=== PATIENT | male | born 1960 | race Caucasian/White ===

== ENCOUNTER 2019-06-19 00:47 | Day surgery (SDC) | payer BC, SELFPAY ==
[2019-06-18 13:55] VITALS: BMI 27.8
[2019-06-19] MEDS: LACTATED RINGERS 1,000 ML 150 ML IV CONT (07:57)
[2019-06-19 08:00] VITALS: BP 123/84; PULSE 78; RESP 16; TEMP 36.9; O2SAT 95
[2019-06-19 08:00] LABS: Glucose Point of Care 199 (65-105)
[2019-06-19 08:02] VITALS: BMI 27.6
--- NOTE | 2019-06-19 08:03 | PM.HPGS ---
History of Present Illness History of Present Illness Consent: Risks, benefits, and alternatives have been discussed and questions answered. Patient agrees to proceed with procedure. Chief complaint: hx colon polyps Narrative: Donta Swan is a 58 year old male for screening colonoscopy. He had polyps removed 5 years ago. Meds Home Medications and Allergies Home Medications Medication Instructions Recorded Confirmed Type aspirin [Adult Low Dose Aspirin] 81 mg PO DAILY 06/18/19 06/19/19 History atorvastatin 10 mg PO DAILY 06/18/19 06/19/19 History fenofibrate micronized 134 mg PO DAILY 06/18/19 06/19/19 History metformin 1,000 mg PO BID 06/18/19 06/19/19 History metoprolol succinate 25 mg PO DAILY 06/18/19 06/19/19 History Allergies Allergy/AdvReac Type Severity Reaction Status Date / Time No Known Allergies Allergy Verified 06/19/19 07:47 Vital Signs Vital Signs - 24 hr 06/19/19 08:00 Temperature 36.9 C Pulse Rate 78 Respiratory Rate 16 Blood Pressure 123/84 Pulse Oximetry 95 Exam Resp: Auscultation: clear to auscultation bilaterally Cardio: Rate: regular rate Rhythm: regular rhythm GI: GI Palp: Yes Soft to palpation and No Tenderness to palpation present (GI) Assessment and Plan Assessment and plan (1) Colon cancer screening: Code(s): Z12.11 - Encounter for screening for malignant neoplasm of colon Status: Acute Assessment and Plan: Colonoscopy with possible biopsy or polypectomy or cautery or injection of substances.
--- NOTE | 2019-06-19 08:33 | WPDANESEPPF ---
Anes - Initial Pre Proc Eval Procedure: Operation Date: 06/19/19 08:30 Proposed Procedures p Screening Colonoscopy - Artie Castanon MD Date/Time: 06/19/19 08:33 Surgeon: Artie Castanon MD Pre Op Diagnosis: hx colon polyps Patient Data Age: 58 Gender: M Height: 6 ft Weight: 92.4 kg Last Vital Signs Temp 98.4 F 06/19/19 08:00 Pulse 78 06/19/19 08:00 Resp 16 06/19/19 08:00 BP 123/84 06/19/19 08:00 Pulse Ox 95 06/19/19 08:00 Allergies Allergy/AdvReac Type Severity Reaction Status Date / Time No Known Allergies Allergy Verified 06/19/19 07:47 Home Medications Medication Instructions Recorded Confirmed Type aspirin [Adult Low Dose Aspirin] 81 mg PO DAILY 06/18/19 06/19/19 History atorvastatin 10 mg PO DAILY 06/18/19 06/19/19 History fenofibrate micronized 134 mg PO DAILY 06/18/19 06/19/19 History metformin 1,000 mg PO BID 06/18/19 06/19/19 History metoprolol succinate 25 mg PO DAILY 06/18/19 06/19/19 History Laboratory Tests 06/19/19 07:55 POC Capillary Glucose 199 mg/dl H mg/dl (65-105) Patient hx anesthesia problems: none Family hx anesthesia problems: none PMFSH Past Medical History Medical History (Updated 06/19/19 @ 08:20 by Jasen Garces MD) Diabetes Hyperlipidemia Hypertension Surgical History Surgical History (Updated 06/19/19 @ 08:33 by Jasen Garces MD) S/P CABG x 5 Anes - Eval Final PreProcedure Day of Procedure 06/19/19 08:33 Patient weight: overweight Heart: regular rate and rhythm Lungs: clear to auscultation Airway: Mallampati scale class II Neurological: alert and oriented Last oral intake: >/= 8 hours ASA classification: III Emergent: no Anesthetic plan: proceed Anesthesia type and monitoring: general GIVS and standard monitoring Informed Consent: The patient's anesthetic plan and its attendant risks and benefits were discussed with the patient/family/POA. Questions were solicited and answers provided to the satisfaction of the patient/family/POA.
[2019-06-19 08:58] VITALS: BP 115/81; PULSE 76; RESP 19; O2SAT 97
[2019-06-19 09:08] VITALS: BP 121/85; PULSE 76; RESP 23; O2SAT 93
[2019-06-19 09:14] VITALS: BP 115/80; PULSE 80; RESP 26; O2SAT 95
== END 2019-06-19 09:20 | disposition home or self-care (01) ==
PROVIDERS: PCP Family Medicine Sports Medicine; Visit Provider Internal Medicine Gastroenterology
PROC: 0DJD8ZZ Inspection of Lower Intestinal Tract, Via Natural or Artificial Opening Endoscopic (ICD-10-PCS; CPT 45378; principal; 2019-06-19 08:30)
DX: Z12.11 Encounter for screening for malignant neoplasm of colon (principal); K63.5 Polyp of colon; K57.30 Diverticulosis of large intestine without perforation or abscess without bleeding; I10 Essential (primary) hypertension; E78.5 Hyperlipidemia, unspecified; E11.9 Type 2 diabetes mellitus without complications; Z79.82 Long term (current) use of aspirin; Z79.84 Long term (current) use of oral hypoglycemic drugs; Z95.1 Presence of aortocoronary bypass graft
CPT/HCPCS: 45380; 88305; J2704; J7120

== ENCOUNTER 2021-12-04 10:47 | Emergency (ER) | payer BC, SELFPAY ==
[2021-12-04 11:02] VITALS: BP 143/89; PULSE 85; RESP 16; TEMP 36.4; O2SAT 97
--- NOTE | 2021-12-04 11:57 | ED.GENADULT ---
HPI - General Adult General Chief complaint: Skin/Abscess/Foreign Body Stated complaint: Rash on head Source: patient Mode of arrival: ambulatory Limitations: no limitations History of Present Illness HPI narrative: Patient presents for evaluation of painful, pruritic rash to the left side of his forehead/scalp. Symptom onset Monday of this week. No new lotions, soaps, detergents, topical products. He has a history of chickenpox in childhood. No one else has similar symptoms. He has not taken any medications to assist with his symptoms. He states when he palpates the affected area feels like he was punched there . No additional complaints or concerns. Related Data Home Medications Medication Instructions Recorded Confirmed aspirin 81 mg tablet,delayed 81 mg PO DAILY 06/18/19 06/19/19 release (Adult Low Dose Aspirin) atorvastatin 10 mg tablet 10 mg PO DAILY 06/18/19 06/19/19 fenofibrate micronized 134 mg 134 mg PO DAILY 06/18/19 06/19/19 capsule metformin 1,000 mg tablet 1,000 mg PO BID 06/18/19 06/19/19 metoprolol succinate 25 mg 25 mg PO DAILY 06/18/19 06/19/19 tablet,extended release 24 hr Allergies Allergy/AdvReac Type Severity Reaction Status Date / Time No Known Allergies Allergy Verified 06/19/19 07:47 Review of Systems Review of Systems: CONSTITUTIONAL: Denies fever, chills, or sweats. EYES: Denies visual changes, redness, or discharge. ENT: Denies rhinorrhea, congestion, sore throat, or otalgia. CARDIOVASCULAR: Denies chest pain, palpitations, or edema. RESPIRATORY: Denies cough or dyspnea. GASTROINTESTINAL: Denies abdominal pain, nausea, vomiting, or diarrhea. GENITOURINARY: Denies dysuria or hematuria. SKIN: Reports painful, pruritic rash to the left side of his forehead/scalp MUSCULOSKELETAL: Denies back pain, joint pain, or myalgia. NEUROLOGIC: Denies headache, numbness, dizziness, or weakness. PSYCHIATRIC: Denies anxiety or depression. [facility] Past Medical History Medical History Diabetes Hyperlipidemia Hypertension Shingles Surgical History Surgical History S/P CABG x 5 Family History Family History Mother Family history non-contributory Social History Social History Smoking status: Never smoker Living arrangements: with family Gender identity (if verbalized by the patient): Male Sexual Orientation (if Verbalized by the Patient): Straight or Heterosexual Spiritual care concerns: No Exam Narrative: GENERAL: Well-appearing, well-nourished, and in no acute distress. HEAD: Normocephalic, atraumatic. EYES: PERRLA and EOMI. ENT: Nares clear, no rhinorrhea or epistaxis. Mucous membranes moist. Oropharynx without tonsillar hypertrophy exudate or other lesions. Bilateral TMs pearly diaz nonbulging NECK: Supple. No adenopathy or masses. No carotid bruits or JVD CHEST: Clear to auscultation. No respiratory distress. No wheezes rales or rhonchi HEART: Regular rate and rhythm. No murmur heard. Normal peripheral pulses. ABDOMEN: Soft, nontender, nondistended, normal active bowel sounds. EXTREMITIES: Normal range of motion. No edema. SKIN: There are a cluster of erythematous, raised, indurated areas to the left side of his forehead/frontal region of his scalp. There appear to be forming vesicles in that area NEURO: No focal deficits. Alert and oriented x3. PSYCH: Normal mood and affect. Course Course Emergency Course: This is a 60-year-old male that presented for evaluation of painful, erythematous and pruritic areas to the skin of his forehead and scalp. This appears to be herpes zoster. I cannot definitively rule out allergic dermatitis. He will take Benadryl [id number] at home orally. We will add Valtrex and hydrocodone.
== END 2021-12-04 12:06 | disposition home or self-care (01) ==
PROVIDERS: Emergency Provider Nurse Practitioner; PCP Family Medicine Sports Medicine
DX: B02.9 Zoster without complications (principal); E11.9 Type 2 diabetes mellitus without complications; E78.5 Hyperlipidemia, unspecified; I10 Essential (primary) hypertension
CPT/HCPCS: 99213; G0463

== ENCOUNTER 2023-03-04 14:26 | Emergency (ER) | payer BC, SELFPAY ==
--- NOTE | ~2023-03-04 | XR_ITS ---
XR humerus LT 03/04/2023 16:05 Indication: Left arm injury. Procedure: 2 views left humerus Comparison: No prior studies for comparison. Findings: Mild polyarticular osteoarthritis of the left shoulder. There is subtle ossification adjace nt to the humeral head, consistent with calcific tendinopathy. No acute fracture, subluxation or disl ocation. No foreign bodies. Impression: 1: No acute fracture. Reviewed, dictated and finalized at location A. NSIC ACCOUNTANT Impression: 1: No acute fracture.
[2023-03-04 14:49] VITALS: BP 128/80; PULSE 99; RESP 18; TEMP 36.3; O2SAT 99
--- NOTE | 2023-03-04 16:21 | ED.UPPEXIN ---
HPI - Extremity Injury (Upper) General Chief Complaint: Extremity Injury, Upper Stated Complaint: torn bicep Time Seen by Provider: 03/04/23 15:46 History of Present Illness HPI narrative: 62-year-old male reports for evaluation for left biceps pain for the past few hours. Patient states a few hours ago, he was climbing a ladder in the garage when he slipped and tried to catch himself with his left arm. States he felt a pull in his biceps is concerned that he tore his biceps muscle. He reports that his sling which has improved his pain. He has not taken anything for pain. Patient denies other injuries acquired during the fall. He did not his head or lose consciousness. Related Data Home Medications Medication Instructions Recorded Confirmed aspirin 81 mg tablet,delayed 81 mg PO DAILY 06/18/19 06/19/19 release (Adult Low Dose Aspirin) atorvastatin 10 mg tablet 10 mg PO DAILY 06/18/19 06/19/19 fenofibrate micronized 134 mg 134 mg PO DAILY 06/18/19 06/19/19 capsule metformin 1,000 mg tablet 1,000 mg PO BID 06/18/19 06/19/19 metoprolol succinate 25 mg 25 mg PO DAILY 06/18/19 06/19/19 tablet,extended release 24 hr Allergies Allergy/AdvReac Type Severity Reaction Status Date / Time No Known Allergies Allergy Verified 03/04/23 15:49 Review of Systems Review of Systems: CONSTITUTIONAL: Denies fever, chills, or sweats. EYES: Denies visual changes, redness, or discharge. ENT: Denies rhinorrhea, congestion, sore throat, or otalgia. CARDIOVASCULAR: Denies chest pain, palpitations, or edema. RESPIRATORY: Denies cough or dyspnea. GASTROINTESTINAL: Denies abdominal pain, nausea, vomiting, or diarrhea. GENITOURINARY: Denies dysuria or hematuria. SKIN: Denies rash or itching. MUSCULOSKELETAL: See HPI NEUROLOGIC: Denies headache, numbness, or weakness. PSYCHIATRIC: Denies anxiety or depression. [facility] Past Medical History Medical History Diabetes Hyperlipidemia Hypertension Shingles Surgical History Surgical History S/P CABG x 5 Family History Family History Mother Family history non-contributory Social History Social History Smoking status: Never smoker Living arrangements: with family Gender identity (if verbalized by the patient): Male Sexual Orientation (if Verbalized by the Patient): Straight or Heterosexual Spiritual care concerns: No Exam Narrative: GENERAL: Well-appearing, well-nourished, and in no acute distress. HEAD: Normocephalic, atraumatic. NECK: Supple. CHEST: Clear to auscultation. No respiratory distress. HEART: Regular rate and rhythm. No murmur heard. Normal peripheral pulses. 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 Tenderness to proximal radius and ulna. No overlying ecchymosis or edema. Full flexion of the arm with 170 degree extension. Elbow flexion, extension, supination and pronation 5/5. Radial pulse is absent secondary to prior CABG. Ulnar artery heard with doppler. Radial, median and ulnar nerves intact. Sensation intact throughout. SKIN: Warm, dry, no rash. NEURO: No focal deficits. Alert and oriented x3 Course Vital Signs Vital signs: Vital Signs Temperature 97.4 F L 03/04/23 14:49 Pulse Rate 99 03/04/23 14:49 Respiratory Rate 18 03/04/23 14:49 Blood Pressure 128/80 03/04/23 14:49 Pulse Oximetry 99 03/04/23 14:49 Temperature 97.4 F L 03/04/23 14:49 Pulse Rate 99 03/04/23 14:49 Respiratory Rate 18 03/04/23 14:49 Blood Pressure 128/80 03/04/23 14:49 Pulse Oximetry 99 03/04/23 14:49 MDM - Extremity Injury (Upper) MDM Narrative Medical decision making narrative: 62-year-old male reports for evaluation for left upper extremity pain after he tried to catch himself up falling
[2023-03-04] MEDS: IBUPROFEN 600 MG TABLET PO (16:36)
[2023-03-04] MEDS: HYDROcodone/acetaminophen (*CRX) 5-325 MG TABLET 1 TAB PO (16:36)
== END 2023-03-04 17:24 | disposition home or self-care (01) ==
PROVIDERS: Emergency Provider Physician Assistant; PCP Family Medicine
DX: S46.212A Strain of muscle, fascia and tendon of other parts of biceps, left arm, initial encounter (principal); E78.5 Hyperlipidemia, unspecified; I10 Essential (primary) hypertension; E11.9 Type 2 diabetes mellitus without complications; Z95.1 Presence of aortocoronary bypass graft; Z79.84 Long term (current) use of oral hypoglycemic drugs; Z79.82 Long term (current) use of aspirin; W11.XXXA Fall on and from ladder, initial encounter
CPT/HCPCS: 73060; 99283; A4565; A9270

== ENCOUNTER 2023-03-08 14:10 | Outpatient (CLI) | payer BC, SELFPAY ==
--- NOTE | 2023-03-08 14:24 | ECG_ITS ---
Measurements Intervals [place] Rate: 71 P: 28 IN: 177 QRS: -11 QRSD: 106 T: 29 QT: 374 QTc: 408 Interpretive Statements SINUS RHYTHM INCOMPLETE RIGHT BUNDLE BRANCH BLOCK [90+ ms QRS DURATION, TERMINAL R IN V1/V2, 40+ ms S IN I/aVL/V4/V5/V6] INFERIOR MYOCARDIAL INFARCTION , PROBABLY OLD [40+ ms Q WAVE AND/OR ST/T ABNORMALITY IN II/aVF] NO PREVIOUS ECG AVAILABLE FOR COMPARISON Electronically Signed On 03-08-2023 15:08:14 [employer]ER[employer] PRODUCT TESTER by Khari Henson M.D.
[2023-03-08 15:00] LABS: Anion Gap 7 mmol/L (8-16); Blood Urea Nitrogen 23 mg/dL (9-20); Calcium 9.5 mg/dL (8.4-10.2); Carbon Dioxide 31 mmol/L (22-30); Chloride 102 mmol/L (98-107); Estimated Glomerular Filt Rate > 60; Glucose 146 mg/dL (65-110); Potassium 3.8 mmol/L (3.4-5.0); Sodium 140 mmol/L (137-145)
== END 2023-03-08 14:11 | disposition home or self-care (01) ==
PROVIDERS: PCP Family Medicine; Visit Provider Anesthesiology
DX: Z01.818 Encounter for other preprocedural examination (principal); E11.9 Type 2 diabetes mellitus without complications; I10 Essential (primary) hypertension; I45.10 Unspecified right bundle-branch block; R93.1 Abnormal findings on diagnostic imaging of heart and coronary circulation
CPT/HCPCS: 36415; 80048; 93005

== ENCOUNTER 2023-03-10 01:18 | Day surgery (SDC) | payer BC, SELFPAY ==
--- NOTE | 2023-03-07 17:12 | PC.NURSE ---
Report to the Outpatient Waiting Room, entrance under the green pavilion located off [facility], at time 1030 on date 03/10/23. Planned Procedure Time: 1230. Time changes happen often and if your time is changed the preop area will call you the afternoon before. - You and your visitor will be asked to self-screen and do not enter if you have any COVID symptoms. - A mask is optional within the hospital at this time. Patients may have clear liquids (water, carbonated beverages, clear teas, apple juice) until 3 hours prior to surgery with a maximum of 20 ounces. 0930 - No food from midnight until time of surgery - Infants may have breast milk until 4 hours before surgery, formula 6 hours prior to surgery. - Children will be allowed to drink immediately following surgery. If applicable, please bring a bottle or sippy cup to assist with drinking. Juice, water, soda, and popsicles are readily available. For infants on formula, please bring formula the day of surgery. Pacifiers are allowed. Take the following medications with a SIP of water the morning of surgery: metoprolol DO NOT STOP ANY OF YOUR OTHER PRESCRIPTION MEDICATIONS PRIOR TO SURGERY ?EXCEPT THE FOLLOWING Medications to discontinue per physician aspirin, atorvastatin, farxiga, fenofibrate, glimepiride, metformin Date to take last dose aspirin, atorvastatin, farxiga, fenofibrate, glimepiride, metformin- 03/09/23 (patient has held aspirin starting 03/06/23) Please no make-up, nail citizen of [place], hairspray, perfume, deodorant, or body powder the day of surgery. No jewelry (including any body piercings) or valuables the day of surgery, leave them at home. Please take a shower or bath the night before, or the morning of, surgery with an antibacterial soap. Wear comfortable, loose fitting clothing. Children are encouraged to wear pajamas. - Jewelry must be removed prior to entering the operating room. Rings and piercings that are not removed may be cut off. - The hospital will not accept responsibility for valuables. - Please leave all valuables, including medications, at home the day of surgery. If you are going home after surgery, a licensed transfer driver must drive you home. - NO public transportation without another adult if you receive anesthesia. - We recommend that an adult stay with you for 24 hours following discharge. - We also recommend that you do not drive, make important decision, drink alcoholic beverages, or take any drugs that were not prescribed by your health care provider for at least 24 hours after your discharge time. For Pediatric surgeries, we recommend two adults accompany the child home. Follow any additional instructions given to you from your surgeon. If you or anyone in your household have experienced Covid symptoms in the past week, please notify your surgeon or the nurse liaison at the phone number below for possible testing. Telephone instructions given to Patient- Donta Swan and asked if any additional questions and then verbalized understanding. Patient advised to call surgeon office or pre surgery nurse liaison [phone] if any additional questions.
[2023-03-07 17:19] VITALS: BMI 26.4
[2023-03-10] VITALS (12 sets, daily range): BP systolic 121–153; BP diastolic 63–83; PULSE 88–103; RESP 12–21; TEMP 36.2–36.6; O2SAT 93–98
--- NOTE | ~2023-03-10 | XR_ITS ---
EXAMINATION: XR surgery orthopedic DATE: 03/10/2023 13:23 INDICATION: Left biceps tendon repair. TECHNIQUE: 4 fluoroscopic images of the left elbow were obtained during procedure performed by Dr. Wes yost. Radiologist was not present for the imaging or procedure. The amount of fluoroscopy time used during this procedure was 2.8 minutes. COMPARISON: 03/04/2023 FINDINGS: The tip of a probe likely for marking project over the radial tuberosity. Also projecting over the pr oximal radius is a small surgical clip which may relate to an earlier biceps tendon repair. Subsequen t images demonstrate a lucent tract extending across the proximal radial diaphysis at the level of th e radial tubercle and placement of a metallic button overlying the typical likely for anchoring of th e distal biceps tendon repair. Bone alignment is normal. No fracture. Mild osteoarthritis at the prox imal radioulnar articulation. Expected small amount of soft tissue gas at the operative bed. IMPRESSION: 1. Fluoroscopy utilized during the distal left biceps tendon repair with expected appearance. See pro cedure note for further detail. Reviewed, dictated and finalized at location A. STANT TEACHER IMPRESSION: 1. Fluoroscopy utilized during the distal left biceps tendon repair with expect ed appearance. See procedure note for further detail.
--- NOTE | 2023-03-10 07:08 | WPDHPUPDATE1 ---
History and Physical Update Update Date/Time: 03/10/23 07:08 History and Physical has been reviewed, including an updated exam of the patient. There are NO changes in the patient's condition. Risks, benefits, and alternatives have been discussed and questions answered. Patient agrees to proceed with procedure.
[2023-03-10] MEDS: ACETAMINOPHEN 500 MG TABLET 1000 MG PO (10:00)
[2023-03-10] MEDS: CELECOXIB 200 MG CAPSULE PO (10:00)
[2023-03-10] MEDS: LACTATED RINGERS 1,000 ML 30 ML IV CONT ×2 (10:05→13:35)
[2023-03-10 10:20] LABS: Glucose Point of Care 168 mg/dl (65-105)
--- NOTE | 2023-03-10 10:52 | WPDANESEPPF ---
Anes - Initial Pre Proc Eval Procedure: Operation Date: 03/10/23 12:00 Proposed Procedures p Left Distal Biceps Repair - Deon Jacome MD Date/Time: 03/10/23 10:52 Surgeon: Deon Jacome MD Pre Op Diagnosis: left distal biceps rupture Patient Data Age: 62 Gender: M Height: 1.85 m Weight: 91.4 kg Last Vital Signs Temp 36.2 C L 03/10/23 09:52 Pulse 103 H 03/10/23 09:52 Resp 18 03/10/23 09:52 BP 125/80 03/10/23 09:52 Pulse Ox 98 03/10/23 09:52 O2 Del Method Room Air 03/10/23 09:52 Allergies Allergy/AdvReac Type Severity Reaction Status Date / Time No Known Allergies Allergy Verified 03/10/23 10:15 Home Medications Medication Instructions Recorded Confirmed Type aspirin 81 mg tablet,delayed 81 mg PO DAILY 06/18/19 03/07/23 History release (Adult Low Dose Aspirin) atorvastatin 10 mg tablet 10 mg PO DAILY 06/18/19 03/07/23 History fenofibrate micronized 134 mg 134 mg PO DAILY 06/18/19 03/07/23 History capsule metformin 1,000 mg tablet 1,000 mg PO BID 06/18/19 03/07/23 History metoprolol succinate 25 mg 25 mg PO DAILY 06/18/19 03/07/23 History tablet,extended release 24 hr dapagliflozin propanediol 10 mg 10 mg PO DAILY 03/07/23 03/07/23 History tablet (Farxiga) glimepiride 4 mg tablet 4 mg PO DAILY 03/07/23 03/07/23 History hydrocodone 5 mg-acetaminophen 325 1 tablet PO Q8H PRN pain #30 tabs 03/10/23 Rx mg tablet Laboratory Tests 03/10/23 10:18 POC Capillary Glucose 168 H mg/dl (65-105) Patient hx anesthesia problems: none Family hx anesthesia problems: none Results Review: All pre-operative results and documents have been reviewed as part of the pre-operative evaluation. 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- [employer] Gender identity (if verbalized by the patient): Male Sexual Orientation (if Verbalized by the Patient): Straight or Heterosexual Spiritual care concerns: No Anes - Eval Final PreProcedure Day of Procedure 03/10/23 10:52 Patient weight: normal Heart: regular rate and rhythm Lungs: clear to auscultation Airway: Mallampati scale class II Neurological: alert and oriented Last oral intake: >/= 8 hours ASA classification: III Emergent: no Anesthetic plan: proceed Anesthesia type and monitoring: general LMA and standard monitoring Results Review: All pre-operative results and documents have been reviewed as part of the pre-operative evaluation. Informed Consent: The patient's anesthetic plan and its attendant risks and benefits were discussed with the patient/family/POA. Questions were solicited and answers provided to the satisfaction of the patient/family/POA.
--- NOTE | 2023-03-10 11:08 | W.PM.PROC2 ---
Procedure Note - Detailed Date of Procedure 03/10/23 Pre-op Diagnosis left distal biceps rupture Post-op Diagnosis Same Procedure Performed LEFT DISTAL BICEPS REPAIR Surgeon Deon Jacome MD Anesthesia General Description of Procedure THE LEFT UPPER EXTREMITY WAS PREPPED AND DRAPED STERILE. THE STUMP OF THE BICEPS TENDON WAS PALPATED OVER THE CUBITAL FOSSA. THE TOURNIQUET WAS INFLATED. THE RADIAL TUBEROSITY WAS IDENTIFIED ON C ARM FLUOROSCOPY. AN INCISION WAS MADE OVER THE FOREARM 3 CM DITAL TO THE ELBOW CREASE. DISSECTION CONTINUED UNTIL THE LATERAL ANTEBRACHIAL CUTANEOUS NERVE WAS IDENTIFIED AND IT WAS RETRACTED. THERE WAS SCARING IN THE AREA OF PREVIOUS SURGICAL DISSECTION. THE STUMP OF THE BICEPS TENDON WAS IDENTIFIED AND RETRACTED DISTALLY UNTIL THE WHOLE TENDON WAS IDENTIFIED THROUGH THE INCISION. A WHIP STITCH WAS USED TO PREFORM A RUNNING SUTURE OVER THE DISTAL TENDON STUMP BEGINNING AT ABOUT 2 TO 3 CM PROXIMAL TO THE STUMP. THE SUTURE WAS VERY STABLE. NEXT WITH THE WRIST IN SUPINATION BLUNT DISSECTION CONTINUED UNTIL THE RADIAL TUBEROSITY WAS IDENTIFIED. TENDON REMNANT WAS REMOVED FROM THE TUBEROSITY UNTIL THE BONE WAS IDENTIFIED. NEXT A GUIDE PIN WAS PLACED THROUGH THE RADIAL TUBEROSITY IN A DIRECTION APPROXIMATELY 30 DEG ULNARLY. WITH THE WRIST IN SUPINATION A DRILL WAS USED TO ADVANCE THE GUIDE PIN THROUGH BOTH CORTICES OF THE RADIUS. NEXT A UNI CORTICAL HOLE WAS MADE WITH AN 8.0 SIZE DRILL. AN ENDO BUTTON WAS FASTENED ON TO THE SUTURE ENDS OF THE TENDON STUMP. THE ENDO BUTTON WAS THEN PLACED THROUGH THE BI CORTICAL HOLE AT THE RADIAL TUBEROSITY. THE ENDO BUTTON PLACEMENT WAS SEEN ON C ARM XRAY SHOWING GOOD POSITION. WITH THE ELBOW IN APPROXIMATELY 30 DEG OF FLEXION THE BICEPS TENDON WAS WAS ADVANCED IN TO THE TUNNEL AND THE SUTURES WERE TENSIONED OVER AN ENDO BUTTON UNTIL EXCURSION OF THE TENDON WAS IN THE TUNNEL. SUTURES WERE TIED AT THIS POINT. NEXT A 7.5. INTERFERENCE SCREW WAS PLACED OVER A GUIDE WIRE AN SEATED WELL WITHIN THE RADIAL TUBEROSITY TUNNEL WITH AN EXCELLENT BITE. THE ELBOW WAS TAKEN THROUGH A RANGE OF MOTION SHOWING GOOD EXCURSION AND GOOD TENSION. THE TOURNIQUET WAS DEFLATED AND THE BLEEDERS WERE VERY FEW. THE WOUND WAS IRRIGATED WITH STERILE WATER. THE SUBCUTANEOUS LAYER OF THE WOUND APPROXIMATED WITH 3-0 SUTURE. A RUNNING SUBCUTANEOUS SUTURE WAS USED TO APPROXIMATE THE SKIN. DERMABOND WAS THEN PLACED, THEN A STERILE DRESSING AND PLASTER SPLINT WAS APPLIED. THE PATIENT WAS EXTUBATED AND SENT TO RECOVERY ROOM IN STABLE CONDITION Estimated Blood Loss 10 Drains No Pathology None sent Complications No immediate complications Condition Stable Disposition PACU
[2023-03-10] MEDS: ceFAZolin 2 GM/D5W 50 ML 2 GM/50 ML BAG IVPB (11:17)
[2023-03-10] MEDS: fentaNYL CITRATE INJ (*CRX) 100 MCG/2 ML VIAL 25 MCG IV PUSH ×6 (13:43→14:03)
[2023-03-10 13:47] LABS: Glucose Point of Care 185 mg/dl (65-105)
[2023-03-10] MEDS: KETOROLAC 30 MG/ML VIAL (*BKC) IV PUSH (14:09)
[2023-03-10] MEDS: HYDROmorphone HCL INJ (*CRX) 1 MG/ML SYR IV PUSH ×3 (14:10→14:40)
[2023-03-10] MEDS: oxyCODONE HCL (*CRX) 5 MG TAB IR PO (15:00)
== END 2023-03-10 16:20 | disposition home or self-care (01) ==
PROVIDERS: PCP Family Medicine; Visit Provider Orthopaedic Surgery
PROC: (CPT 24341; principal; 2023-03-10 12:00)
DX: S46.212A Strain of muscle, fascia and tendon of other parts of biceps, left arm, initial encounter (principal); X50.0XXA Overexertion from strenuous movement or load, initial encounter; E11.9 Type 2 diabetes mellitus without complications; E78.5 Hyperlipidemia, unspecified; I10 Essential (primary) hypertension; Z95.1 Presence of aortocoronary bypass graft; Z79.82 Long term (current) use of aspirin; Z79.84 Long term (current) use of oral hypoglycemic drugs
CPT/HCPCS: 24342; 82948; 99199; A9270; J0690; J1100; J1170; J1885; J2250; J2405; J2704; J3010; J7120